=== PATIENT | male | born 1990 | race Caucasian/White ===

== ENCOUNTER 2020-04-07 16:25 | Emergency (ER) | payer OTHER ==
[~2020-04-07] VITALS: Ht 185.4 cm; Wt 71.7 kg
[2020-04-07] MEDS ORDERED: KETOROLAC TROMETHAMINE 15 MG/ML VIAL ONE (16:57)
[2020-04-07] MEDS ORDERED: BACITRACIN ZINC OINT PACKET 1 EA PACKET TP ONE ×2 (16:57→17:00)
[2020-04-07] MEDS: KETOROLAC TROMETHAMINE INJ 30 MG/ML VIAL IM ONE ×2 (17:15→17:25)
[2020-04-07] MEDS ORDERED: IBUP-1955 PO (18:14)
--- NOTE | 2020-04-07 18:19 | NUR ---
WOUND CARE DONE, LEFT KNEE COVERED WITH DRY DRESSING. PATIENT ALERT X4 AMBULATORY. Patient discharged to home in stable condition. Written and verbal after care instructions given. Patient verbalizes understanding of instruction.
[2020-04-07 18:21] VITALS: BP 133/61
== END 2020-04-07 18:15 | disposition home or self-care (01) ==
LOC: ER 16:31
DX: S80.02XA Contusion of left knee, initial encounter (principal); S80.812A Abrasion, left lower leg, initial encounter; V29.9XXA Motorcycle rider (driver) (passenger) injured in unspecified traffic accident, initial encounter; Y93.55 Activity, bike riding; Y92.89 Other specified places as the place of occurrence of the external cause; Y99.8 Other external cause status
CPT/HCPCS: 73564; 73590; 73630; 96372; 99284; A6403; J1885